=== PATIENT | male | born 1980 | race Caucasian/White ===

== ENCOUNTER → 2018-11-12 16:29 | Outpatient (CLI) | payer MEDICARE, SELFPAY ==
[2018-11-12 16:48] LABS: Basophils # 0.1 K/mm3 (0-0.2); Basophils % 1.7 % (0.1-2.0); Eosinophils # 0.3 K/mm3 (0.0-0.4); Eosinophils % 5.2 % (0.1-12.0); Hematocrit 45.7 % (42.0-52.0); Hemoglobin 15.5 g/dL (14.1-18.0); Lymphocytes # 1.5 K/mm3 (0.7-4.5); Mean Corpuscular Hemoglobin 32.8 pg (27.0-31.2); Mean Corpuscular Volume 96.5 fl (80-94); Mean Platelet Volume 8.2 fl (7.4-10.4); Monocytes # 0.4 K/mm3 (0.1-1.0); Neutrophils # 3.8 K/mm3 (1.8-7.8); Neutrophils % 63.1 % (37.0-80.0); Platelet Count 228 K/mm3 (142-424); Red Blood Count 4.74 M/mm3 (4.60-6.20); Red Cell Distribution Width 14.1 % (11.5-17.5); White Blood Count 6.1 K/mm3 (4.8-10.8)
[2018-11-12 18:17] LABS: Alanine Aminotransferase 47 U/L (12-78); Albumin/Globulin Ratio 1.1 (1.1-1.8); Alkaline Phosphatase 77 U/L (46-116); Anion Gap 15.9 mEq/L (5-15); Aspartate Amino Transferase 22 U/L (15-37); Bilirubin,Total 0.4 mg/dL (0.2-1.0); Blood Urea Nitrogen 10 mg/dL (7-18); Calcium 9.2 mg/dL (8.5-10.1); Carbon Dioxide 26 mmol/L (21.0-32.0); Chloride 103 mmol/L (98-107); Creatinine,Serum 1.07 mg/dL (0.70-1.30); Estimated Glomerular Filt Rate 77 ml/min (>60); Free T4 (Free Thyroxine) 0.81 ng/dl (0.76-1.46); GFR (African American) 93 ML/MIN (>60); Globulin 3.8 gm/dl (1.3-3.2); Glucose 103 mg/dL (74-106); Magnesium 1.8 mg/dL (1.4-2.2); Potassium 3.9 mmoL/L (3.5-5.1); Sodium 141 mmol/L (136-145); Thyroid Stimulating Hormone 1.73 uIU/ml (0.358-3.740); Total Protein,Serum 7.8 gm/dL (6.4-8.2)
[2018-11-14 06:44] LABS: Vitamin D 25 Hydroxy 11.1 ng/mL (30.0-100.0)
[2018-11-14 12:40] LABS: Vitamin B12 357 pg/mL (232-1245)
== END ==
PROVIDERS: Visit Provider Nurse Practitioner Family
DX: G43.119 Migraine with aura, intractable, without status migrainosus (principal); R53.83 Other fatigue
CPT/HCPCS: 36415; 80053; 82607; 82652; 83735; 84439; 84443; 85025

== ENCOUNTER → 2020-11-07 12:06 | Outpatient (CLI) | payer MEDICARE, SELFPAY ==
--- NOTE | 2020-11-07 12:15 | XR_ITS ---
PROCEDURE: XR SHOULDER RT MIN 2V CLINICAL INDICATION: PAIN IN RT SHOULDER, DECREASED ROM OF RT SHOULDER COMPARISON: No exams were available for comparison FINDINGS: The lateral clavicle is intact. The AC joint appears normal. Humeral head and glenoid are normal. There is no subacromial stenosis. There are no soft tissue calcifications. IMPRESSION: No acute findings. Dictated by: Dr. Daniel Maxwell MD 11/07/2020 12:40 Dr. Daniel Maxwell MD in [place] 11/07/2020 12:40
== END ==
PROVIDERS: PCP Nurse Practitioner Family; Visit Provider Nurse Practitioner Family
DX: M25.511 Pain in right shoulder (principal); M25.611 Stiffness of right shoulder, not elsewhere classified
CPT/HCPCS: 73030

== ENCOUNTER → 2023-02-19 12:04 | Outpatient (CLI) | payer MEDICARE, SELFPAY ==
[2023-02-19 13:02] LABS: D-Dimer < 0.25 ug/mL (0.0-0.5)
[2023-02-19 13:12] LABS: Troponin I < 0.01 ng/ml (0.00-0.034)
== END ==
PROVIDERS: PCP Nurse Practitioner Family; Visit Provider Internal Medicine
DX: I10 Essential (primary) hypertension (principal); R00.2 Palpitations; R06.00 Dyspnea, unspecified; R07.9 Chest pain, unspecified; R42 Dizziness and giddiness; R45.89 Other symptoms and signs involving emotional state; Z87.891 Personal history of nicotine dependence
CPT/HCPCS: 36415; 84484; 85378; 93225; 93226

== ENCOUNTER → 2023-02-24 07:03 | Outpatient (CLI) | payer MEDICARE, SELFPAY ==
--- NOTE | 2023-02-24 07:11 | NM_ITS ---
APPROVED REPORT Exam: Nuclear Stress Test Indication: chest pain..soa..palpitations..syncope Patient Location: Outpatient Stress Tech: Urmila Thurman IN Tech:Yuko Stubbs ARRT RT (R)(N)(M) Ht: 5 ft 8 in Wt: 230 lbs HR: 70 bpm BP: 160/105 mmHg BSA: 2.17 m2 Rhythm: NSR TID: 1.12 BMI: 34.9 History: chest pain..soa..palpitations..syncope Procedure: Patient exercised on Harmeet protocol 6:17 minutes and sec, resting heart rate 70 bpm, resting blood pressure 160/105 mmHg, with exercise maximum heart rate achived was 165 bpm which is 94 % of the maximum predicted heart rate and blood pressure was 228/112 mmHg. Test was stopped due to leg fatigue. Patient denied any complaint of chest pain. Patient has Poor exercise capacity, achieved 7.0 METs of workload on treadmill, the blood pressure response to exercise was Exaggerated. Cardiac Stress and Resting SPECT Images: Cardiac Stress and Resting SPECT images were obtained using technetium 99m Myoview 31.3 mCi stress and 10.42 mCi at rest. Resting and stress imaging in both supine and prone positions demonstrate no fixed or reversible perfusion defects. Gated imaging demonstrates normal global LV systolic function. LVEF is calculated at 55%. Conclusion: No fixed or reversible perfusion defects. Gated imaging demonstrates normal global LV systolic function. LVEF is calculated at 55%. Electronically signed by : Christiane Demarco, 02/24/2023 23:15:02
--- NOTE | 2023-02-24 10:20 | CA_ITS ---
APPROVED REPORT Exam: Exercise Treadmill Technologist: Urmila Marrero, Ht: 5 ft 8 in Wt: 232 lbs BSA: 2.18 m2 HR: 70 bpm BP: 160/105 mmHg Rhythm: NSR Stress Test Details Test: Harmeet HR Resting HR: 83 bpm Max Heart Rate (APMHR): 176 bpm Max HR Achieved: 165 bpm Target HR (85% APMHR): 150 bpm % of APMHR: 94 Recovery HR: 105 bpm HR response to stress: Normal HR response to stress BP Resting BP: 158.0/98.0 mmHg Max BP: 228.0/121.0 mmHg Recovery BP: 193.0/117.0 mmHg BP response to stress: Abnormal hypertensive response to stress. ECG Resting ECG: Normal sinus rhythm Stress ECG: < [address] depression Arrhythmia: None Recovery ECG: Return to baseline within 3 minutes of recovery Recovery Arrhythmia: None Clinical Exercise duration: 06:17 min Highest Stage Achieved: III Exercise capacity: 7.0 METs Overall Exercise Capacity for Age: Poor Stress ECG Conclusion The patient was able to exercise for a total of 6m 17s. He achieved 7.0 METS. He has poor exercise capacity compared to age and sex matched peers. He has normal HR, but exaggerated BP, response to exercise. Max HR: 165 % of PM: 94 Max BP: 228/121 METs: 7.0 Test stopped due to: dyspnea Symptoms: dyspnea, leg fatigue Arrhythmias/Ectopy: None ST-T Changes: < [address] depression Conclusion: Poor exercise capacity. Exaggerated BP response to exercise. ECG stress test demonstrates possible ischemia. Myoview images are reported separately. Test Summary REST . . . . . . . Sitting REST . . . . . . . Standing REST 04:00 0.0 0.0 83 . 158/ 98 . . Stage 1 01:00 10.0 1.7 110 . . . . Stage 1 02:00 10.0 1.7 128 . . . . Stage 1 03:00 10.0 1.7 138 . 200/105 . . Stage 2 01:00 12.0 2.5 146 . . . . Stage 2 02:00 12.0 2.5 156 . 198/110 . . Stage 2 . . . . . . . Myoview Injected Stage 2 03:00 12.0 2.5 159 . 198/110 . . Stage 3 00:17 14.0 3.4 163 . . . Stop exercise at 06:17 RECOVERY 01:00 0.0 0.0 140 . . . . RECOVERY 02:00 0.0 0.0 124 . . . . RECOVERY 03:00 0.0 0.0 107 . 228/121 . . RECOVERY 04:00 0.0 0.0 109 . 200/113 . . RECOVERY 05:00 0.0 0.0 101 . 200/113 . . RECOVERY 06:00 0.0 0.0 100 . 189/116 . . RECOVERY 07:00 0.0 0.0 104 . 189/116 . . RECOVERY 08:00 0.0 0.0 99 . 173/100 . . RECOVERY 09:00 0.0 0.0 96 . 193/117 . . RECOVERY 09:20 0.0 0.0 0 . 193/117 . . Electronically signed by : Christiane Demarco, 02/24/2023 23:13:05
== END ==
LOC: RAD 07:03
PROVIDERS: PCP Nurse Practitioner Family; Visit Provider Internal Medicine
DX: I10 Essential (primary) hypertension (principal); R00.2 Palpitations; R06.00 Dyspnea, unspecified; R07.9 Chest pain, unspecified; R45.89 Other symptoms and signs involving emotional state; Z87.891 Personal history of nicotine dependence
CPT/HCPCS: 78452; 93017; A9502

== ENCOUNTER → 2023-02-26 07:52 | Outpatient (CLI) | payer MEDICARE, SELFPAY ==
--- NOTE | 2023-02-26 07:53 | CT_ITS ---
FINAL REPORT CLINICAL HISTORY: Chest pain, shortness of breath, palpitations COMPARISON: None FINDINGS: Thin section axial CT images of the chest were obtained with contrast. 3D reformatted images were also obtained. This study was performed with techniques to keep radiation doses as low as reasonably achievable (ALARA). Individualized dose reduction techniques using automated exposure control or adjustment of mA and/or kV according to the patient's size were employed. There is no evidence of pulmonary embolism. There is no evidence of thoracic aortic aneurysm or dissection. There is no evidence of mediastinal or hilar mass or adenopathy. There is a noncalcified nodule in the right lower lobe measuring 19 mm. There is a calcified granuloma in the right lower lobe. Limited images of the upper abdomen are unremarkable. IMPRESSION: No evidence of pulmonary embolism. 19 mm right lower lobe nodule. Recommend PET/CT for further evaluation. Reviewed, Interpreted and Dictated by Les Valdes III, MD Transcribed by Mara Mahan Authenticated and [facility]
--- NOTE | 2023-02-26 08:14 | CA_ITS ---
FINAL REPORT TECHNIQUE: Color Doppler, duplex Doppler and mcgovern scale sonography of the bilateral neck vasculature was performed. Velocities were measured in the carotid arteries. Stenosis evaluation based on velocity criteria. CLINICAL HISTORY: cp/dyspnea/palps/dizziness COMPARISON: None FINDINGS: The peak systolic velocity of the right common carotid artery is 117.6 cm/sec and internal carotid artery 120.8 cm/sec. The diastolic velocity in the internal carotid artery is 51.4 cm/sec. The ICA/CCA ratio is 1.68. Visually, a small amount of plaque is seen. These findings are consistent with less than 50% stenosis. The external carotid artery is patent. The right vertebral artery is patent with antegrade flow. The peak systolic velocity of the left common carotid artery is 82.3 cm/sec and internal carotid artery 102 cm/sec. The diastolic velocity in the internal carotid artery is 36.8 cm/sec. The ICA/CCA ratio is 1.4. Visually, a small amount of plaque is seen. These findings are consistent with less than 50% stenosis. The external carotid artery is patent. The left vertebral artery is patent with antegrade flow. IMPRESSION: No evidence of significant carotid stenosis. Bilateral patent vertebral arteries. If indicated, CTA or MRA could further evaluate. Reviewed, Interpreted and Dictated by Les Valdes III, MD Transcribed by Karena Gibson Authenticated and [facility][1]
== END ==
LOC: RAD 07:52
PROVIDERS: PCP Nurse Practitioner Family; Visit Provider Internal Medicine
DX: I10 Essential (primary) hypertension (principal); R00.2 Palpitations; R06.00 Dyspnea, unspecified; R07.9 Chest pain, unspecified; R45.89 Other symptoms and signs involving emotional state; Z87.891 Personal history of nicotine dependence; R42 Dizziness and giddiness
CPT/HCPCS: 71275; 93880; Q9967

== ENCOUNTER → 2023-03-07 10:29 | Outpatient (CLI) | payer MEDICARE, SELFPAY ==
--- NOTE | 2023-03-07 10:30 | CA_ITS ---
APPROVED REPORT EXAM: Comprehensive 2D, Doppler, and color-flow Echocardiogram Electric Repair Supervisor: Sahra Brewer RVT Ht: 5 ft 8 in Wt: 232lbs BSA: 2.18 BP: 139/100 mmHg Indications: CP,DIZZINESS,EX SMOKER,PALPS,SOA 2D Dimensions LVOT 2.06 cm (M/F) 1.5-2.5 LA Volume 60.40 mL LA Volume Index 27.71 mL/m2 (M/F) 16-34 M-Mode Dimensions RVDd 3.10 cm (0.9-2.6) LA Diam 4.48 cm (1.9-4.0) LVDd 4.97 cm (3.5-5.7) Ao Diam 2.83 cm (2.0-3.7) LVDs 3.30 cm (3.5-5.7) IVSd 0.52 cm (0.6-1.1) PWd 0.44 cm (0.6-1.1) EF (Teich) 62.20% FS 33.60% EDV (Teich) 116.60 mL TAPSE 2.34 (<1.7) ESV (Teich) 44.10 mL LV Diastology E Decel Time 237.00 (160-240 msec) E/A Ratio 0.8 MED E' 7.80 (< 7 cm/sec) E'/MED E' Ratio 8.96 (>14) LAT E' 9.40 (<10 cm/sec) E/LAT E' Ratio 7.44 (>14) Aortic Valve AO Peak GR. 7.60 mmHg Mitral Valve MV E Max Evan. 70.00 (40-130 cm/s) MV A Velocity 85.00 (40-130 cm/s) E/A Ratio 0.83 MV Decel. Time 237.00 (160-240 ms) MV PHT 69.00 ms Pulmonary Valve PV Peak Velocity 111.00 (50-150 cm/s) Tricuspid Valve TR P. Velocity 231.00 cm/s RAP Estimate 10.00 mmHg RVSP 31.40 mmHg Left Ventricle The left ventricle is normal size. The left ventricular systolic function is normal. The left ventricular ejection fraction is within the normal range. There is normal left ventricular wall thickness. There is normal LV segmental wall motion. The left ventricular diastolic function is normal. LVEF is 55%. Right Ventricle Right ventricle is mildly dilated. The right ventricular systolic function is normal. Atria The left atrium size is normal. The right atrium size is normal. There is no Doppler evidence of interatrial shunt. Aortic Valve The aortic valve opens well. There is no aortic valvular stenosis. No aortic regurgitation is present. Mitral Valve The mitral valve is normal in structure. No evidence of mitral valve stenosis. Trace mitral regurgitation. Tricuspid Valve The tricuspid valve leaflets are thin and pliable. Trace tricuspid regurgitation. RVSP is normal. Pulmonic Valve The pulmonary valve is normal in structure. Trace pulmonic regurgitation. Great Vessels The aortic root is normal in size. The ascending aorta is normal in size. IVC is normal in size and collapses >50% with inspiration. Pericardium There is a trivial pericardial effusion noted anteriory along the RV free wall. No echo indications of tamponade. Other Information Study Quality: Fair Conclusion Normal biventricular systolic function. Mild RV dilation. No significant valvular disease. Trivial anterior pericardial effusion. Electronically signed by : Christiane Demarco, 03/08/2023 17:14:54
== END ==
LOC: RT 10:29
PROVIDERS: PCP Nurse Practitioner Family; Visit Provider Internal Medicine
DX: I10 Essential (primary) hypertension (principal); R00.2 Palpitations; R06.00 Dyspnea, unspecified; R07.9 Chest pain, unspecified; R45.89 Other symptoms and signs involving emotional state; Z87.891 Personal history of nicotine dependence
CPT/HCPCS: 93306